=== PATIENT | male | born 1950 | race Caucasian/White ===

== ENCOUNTER → 2020-03-17 | Outpatient (CLI) | payer OTHER ==
[~2020-03-17] MED LIST: ASA81BEC PO; CALCIUM 600 +1 EA11 PO; CRESTOR40 MG PO; EFFIENT10 MG PO; FLOMAX0.4 MG PO; GLUCOSAMINE1000 MG PO; KAPSPARGO SPRIN25 MG PO; LISINOPRIL2.5 MG PO; METOPROLOL SUCC25 M1 PO; NORVASC 2.5 MG2.5 M1 PO; OMEPRAZOLE40 MG PO; UNICOMPLEX M TA1 TA1 PO; VITCB500GO PO
== END ==
LOC: SJCVCIMAG 14:55 → SJCVC 14:55
PROVIDERS: ATTEND Internal Medicine Cardiovascular Disease
DX: I65.23 Occlusion and stenosis of bilateral carotid arteries (principal); R07.9 Chest pain, unspecified; E78.5 Hyperlipidemia, unspecified; E78.00 Pure hypercholesterolemia, unspecified; K21.9 Gastro-esophageal reflux disease without esophagitis; I10 Essential (primary) hypertension; Z82.49 Family history of ischemic heart disease and other diseases of the circulatory system; Z79.82 Long term (current) use of aspirin; Z79.84 Long term (current) use of oral hypoglycemic drugs; R94.31 Abnormal electrocardiogram [ECG] [EKG]

== ENCOUNTER 2020-03-23 07:52 | Observation (INO) | payer OTHER ==
[2020-03-23] VITALS (16 sets, daily range): BP systolic 104–159; BP diastolic 59–89
[~2020-03-23] VITALS: Ht 190.5 cm; Wt 117.9 kg
[2020-03-23 08:34] LABS: HEMATOCRIT 44.2 % (42.0-52.0); HEMOGLOBIN 15.3 gm/dL (14.0-18.0); MCH 29.5 pg (26.0-34.0); MCHC 34.6 g/dL (28.0-37.0); MCV 85.3 fL (80.0-100.0); RBC 5.19 mil/uL (4.50-6.00); RDW 13.7 % (10.5-14.5)
[2020-03-23] MEDS ORDERED: NORVASC 2.5 MG2.5 M1 PO (08:40)
[2020-03-23] MEDS ORDERED: VITCB500GO PO (08:42)
[2020-03-23] MEDS ORDERED: ASA81BEC PO (08:43)
[2020-03-23] MEDS ORDERED: CALCIUM 600 +1 EA11 PO (08:47)
[2020-03-23] MEDS ORDERED: GLUCOSAMINE1000 MG PO (08:48)
[2020-03-23] MEDS ORDERED: LISINOPRIL2.5 MG PO (08:49)
[2020-03-23] MEDS ORDERED: KAPSPARGO SPRIN25 MG PO (08:50)
[2020-03-23] MEDS ORDERED: UNICOMPLEX M TA1 TA1 PO (08:51)
[2020-03-23] MEDS ORDERED: OMEPRAZOLE40 MG PO (08:52)
[2020-03-23] MEDS ORDERED: CRESTOR40 MG PO (08:52)
[2020-03-23] MEDS ORDERED: FLOMAX0.4 MG PO (08:53)
[2020-03-23 08:57] LABS: CALCIUM 9.2 mg/dL (8.5-10.1); POTASSIUM 3.9 mmol/L (3.5-5.1)
--- NOTE | 2020-03-23 14:56 | NUR ---
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 CKUVLA8T 1130. ALERT X4, RA, NSR ON TELE. 3HOUR RIGHT LEG IMMOBILIZED PER PROTOCOL. DRESSIHNG C/D/I, UP AB AMANDA, IV FLUIDS INITIATED PER ORDERS. POST CARDIAC CATH VS PER PROTOCOL IN PLACE. ADMITTED TO UNIT. PT TO LIKE DC HOME WITH SELF CARE IN AM. ORIENTED TO ROOM, CALL LIGHT IN REACH. BEDSIDE.
--- NOTE | 2020-03-23 17:02 | EKG ---
[facility] [place] [address] ELECTROCARDIOGRAM REPORT Name: INIDOCARLOS ALBERTOJOYCE ARNOLD Room #: 205-[facility] M.R.#: [id number] Admission: 03/23/20 Attend Phys: Quique Ramos MD, Discharge: Date of : 46 Report #: [id number] THIS REPORT FOR: cc: Juan Sanchez MD, Bryan W. MD Lundgren, Craig H. 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 : 1950 Requested By: Quique Ramos Order Number: [id number] MD: Randell Babcock Measurements Intervals [place] Rate: 56 P: 12 UT: 201 QRS: -58 QRSD: 110 T: 37 QT: 472 QTc: 456 Interpretive Statements Sinus rhythm Inferior infarct, old No previous ECG available for comparison Electronically Signed On 03-23-2020 17:02:13 CDT by Randell Babcock [email or web address] <ELECTRONICALLY SIGNED> By: Randell Babcock MD, [facility] 03/23/20 1702 0842 [id number] Randell Babcock MD, [facility] /EPI
[2020-03-24] VITALS (7 sets, daily range): BP systolic 121–133; BP diastolic 56–70
--- NOTE | 2020-03-24 03:19 | NUR ---
ASSUMED CARE OF PATIENT AT 1900. PATIENT RESTED WELL THROUGH NIGHT. PATIENT WAS BRADYCARDIC T/O NIGHT WITH HEART RATE IN UPPER 40s-60s. ECCHYMOSIS NOTED AT RIGHT GROIN INCISION SITE. WILL CONTINUE TO MONITOR.
[2020-03-24 06:01] LABS: HEMATOCRIT 40.2 % (42.0-52.0); HEMOGLOBIN 13.7 gm/dL (14.0-18.0); MCH 29.5 pg (26.0-34.0); MCV 86.7 fL (80.0-100.0); RBC 4.63 mil/uL (4.50-6.00); RDW 13.8 % (10.5-14.5); WBC 7.7 thou/uL (4.0-11.0)
[2020-03-24 06:33] LABS: ALBUMIN 3.3 g/dL (3.4-5.0); CALCIUM 8.5 mg/dL (8.5-10.1); CREATININE 0.9 mg/dL (0.7-1.3); POTASSIUM 3.6 mmol/L (3.5-5.1); TOTAL BILIRUBIN 0.6 mg/dL (0.2-1.0); TOTAL PROTEIN 6.4 g/dL (6.4-8.2); TROPONIN-I 0.15 ng/mL (<0.06)
[2020-03-24] MEDS ORDERED: METOPROLOL SUCC25 M1 PO (07:09)
[2020-03-24] MEDS ORDERED: EFFIENT10 MG PO (07:09)
--- NOTE | 2020-03-24 08:18 | EKG ---
[facility] [place] [address] ELECTROCARDIOGRAM REPORT Name: INDIOCARLOS ALBERTOJOYCE ARNOLD Room #: 205-P [facility] M.R.#: [id number] Admission: 03/23/20 Attend Phys: Quique Ramos MD, Discharge: Date of : 46 Report #: [id number] THIS REPORT FOR: cc: Juan Sanchez MD, Bryan W. MD Lundgren, Craig H. 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 : 1950 Requested By: Quique Ramos Order Number: [id number] MD: Randell Babcock Measurements Intervals [place] Rate: 59 P: 18 ID: 202 QRS: -58 QRSD: 113 T: 32 QT: 464 QTc: 460 Interpretive Statements Sinus bradycardia Right ventricular conduction delay Abnormal R-wave progression, late transition Inferior infarct, old Compared to ECG 03/23/2020 08:42:49 No significant change was found Electronically Signed On 03-24-2020 8:17:58 CDT by Randell Babcock [email or web address] <ELECTRONICALLY SIGNED> By: Randell Babcock MD, [facility] 03/24/20816 8 8 Randell Babcock MD, [facility] /EPI
--- NOTE | 2020-03-24 12:06 | NUR ---
ASSUMED CARE 0700. ALERTX4, DENIES CHEST PAIN, DENIES SHORT OF BREATH. AB AMANDA IN ROOM. RIGHT GROIN SIGHT INTACT. CARDIAC REHAB NURSE REVIEWED POST CARDIAC STENT/CATH CARE. NEW SCRIPT REVIEWED. NSR ON TELE. DC HOME WITH SELF CARE. IV AND TELE MONITOR REMOVED.
--- NOTE | 2020-03-29 17:55 | CATHLAB ---
[facility] [address] [place] [address] INVASIVE PROCEDURE REPORT Name: JOYCE IRVIN Room #: 205-P [facility] Abhilash White#: [id number] Admission: 03/23/20 Attend Phys: Quique Ramos MD, Discharge: 03/24/20 Date of : 46 Report #: [id number] THIS REPORT FOR: cc: Juan Sanchez MD, Bryan W. MD Mancuso, Gerald M. MD [facility] ~ APPROVED REPORT Study performed: 03/23/2020 09:07:52 Patient Details Patient Status: Out-Patient Room #: The patient is a 70 year-old male Event Personnel Quique Ramos Cycle Counter, Darnell Pulliam RN, Jade Shirley RTR Jolly, Martin Pina RTR Monitor Procedures Performed Art Access - R femoral artery* Left Heart Cath w/or w/o Coronaries [id number] [facility] 30778 Initial Mod Sed Same Phys/QHP Gr5y 188749 SAMRE[address] Place w/wo Plasty Single RAMUS Inter 459683 Hemostasis w/ Mynx Supravalvular Aortography Injection 3940212 ISVA 70198 Mod Sed Same Phys/QHP Ea 929316 Indication Chest pain Procedure Narrative The Right Groin^ was infiltrated with 1% Lidocaine subcutaneous anesthesia. A PINNACLE 6FR Sheath #[id number] sheath was inserted into the RFA^. Coronary angiography was performed using coronary diagnostic catheters. The right coronary system was accessed and visualized with a JR4 catheter. The left coronary system was accessed and visualized with a JL4 catheter. The left ventricle was accessed and visualized with a PIGTAIL catheter. Left ventriculogram was performed in 30 degree projection. Closure device was deployed with a Fr MYNXGRIP 6/7F #[id number]. The patient tolerated the procedure well and there were no complications associated with the procedure. A hematoma occurred. ROOT INJECTION WAS OBTAINED WELL Intraoperative Conscious Sedation Sedation start time: 953 Case end Time: 1105 [facility] [address] [place] [address] INVASIVE PROCEDURE REPORT Name: JOYCE IRVIN Room #: 205-P [facility].#: [id number] Admission: 03/23/20 Attend Phys: Quique Ramos, Discharge: 03/24/20 Date of : 46 Report #: [id number] Fentanyl 75 mcg Versed 4.5 mg Fluoro Time: 7.07 minutes Dose: DAP 70492.90 cGycm2 1681 mGy Contrast Type and Amount: Omnipaque 210 ml Hemodynamics The aortic pressure is 156/58 mmHg with a mean of 73 mmHg. The left ventricular pressure is 138/11 mmHg with a mean of mmHg. The left ventricular end diastolic pressure is 25 mmHg. PCI Technique Lesion Percutaneous coronary intervention was performed on the ramus intermedius segment. Conclusion #1. Successful PTCA stent of the ostial ramus stenosis of 80 to 90% to 0% with a 2.25 x 12 Obdulio medicated stent postdilated 2.4 mm LIANE grade III flow #2 left main mildly calcified long with an eccentric distal lesion of 30% giving rise to LAD and circumflex and ramus branch. #3 LAD with mild irregularities extends down to the apex. #4 circumflex mildly diseased. The ramus branch appears to come off the left main. This was dilated as noted above. #5 dominant right coronary artery with mild diffuse distal disease no occlusive disease is noted #6 normal left jugular size and systolic function EF 60% #7 mild aortic root dilatation with 1+ aortic insufficiency Recommendations and plan continue aggressive risk factor modification. Dual antiplatelet therapy has been initiated. Patient transferred to CCU to follow post stent protocol <ELECTRONICALLY SIGNED> By: Quique Ramos MD, FACC 03/29/201753 53 53 Quique Ramos MD, FACC /INF
== END 2020-03-24 12:49 | disposition home or self-care (01) ==
LOC: CATH 07:52 → 2N 11:39 → CATH 12:19 → 2N 03-24 12:49
PROVIDERS: ADMIT Internal Medicine Cardiovascular Disease; ATTEND Internal Medicine Cardiovascular Disease
DX: I25.10 Atherosclerotic heart disease of native coronary artery without angina pectoris (principal); I10 Essential (primary) hypertension; K21.9 Gastro-esophageal reflux disease without esophagitis

== ENCOUNTER → 2020-06-29 | Outpatient (CLI) | payer OTHER | LOC: SJCVC 10:39 | PROVIDERS: ATTEND Internal Medicine Cardiovascular Disease | DX: I25.10 Atherosclerotic heart disease of native coronary artery without angina pectoris (principal); R94.31 Abnormal electrocardiogram [ECG] [EKG]; I10 Essential (primary) hypertension; E78.00 Pure hypercholesterolemia, unspecified; R93.1 Abnormal findings on diagnostic imaging of heart and coronary circulation; I77.810 Thoracic aortic ectasia; I65.23 Occlusion and stenosis of bilateral carotid arteries; Z79.899 Other long term (current) drug therapy ==

== ENCOUNTER → 2021-02-17 | Outpatient (CLI) | payer OTHER | LOC: SJCVC 10:55 | PROVIDERS: ATTEND Internal Medicine Cardiovascular Disease | DX: R94.31 Abnormal electrocardiogram [ECG] [EKG] (principal); I25.10 Atherosclerotic heart disease of native coronary artery without angina pectoris; I10 Essential (primary) hypertension; I71.4 Abdominal aortic aneurysm, without rupture; E78.00 Pure hypercholesterolemia, unspecified; I65.23 Occlusion and stenosis of bilateral carotid arteries; Z88.0 Allergy status to penicillin; Z79.82 Long term (current) use of aspirin; Z79.899 Other long term (current) drug therapy; Z82.49 Family history of ischemic heart disease and other diseases of the circulatory system ==

== ENCOUNTER → 2021-06-27 | Outpatient (CLI) | payer OTHER | LOC: SJCVCIMAG 06-24 09:42 | PROVIDERS: ATTEND Internal Medicine Cardiovascular Disease | DX: I25.10 Atherosclerotic heart disease of native coronary artery without angina pectoris (principal); R93.1 Abnormal findings on diagnostic imaging of heart and coronary circulation; I10 Essential (primary) hypertension; E78.00 Pure hypercholesterolemia, unspecified; I65.23 Occlusion and stenosis of bilateral carotid arteries; Z72.89 Other problems related to lifestyle; Z79.82 Long term (current) use of aspirin; Z79.899 Other long term (current) drug therapy; Z88.0 Allergy status to penicillin ==